=== PATIENT | male | born 1970 | race Caucasian/White ===

== ENCOUNTER 2023-02-13 18:05 | Emergency (ER) | payer SELFPAY ==
[~2023-02-13] VITALS: Ht 165.1 cm; Wt 72.6 kg
[2023-02-13 18:28] VITALS: BP 176/95; PULSE 72; RESP 18; TEMP 98.2; O2SAT 98
[2023-02-13 19:07] LABS: BASOPHILS % (AUTO) 0.6 % (0.0-2.0); EOSINOPHILS # (AUTO) 0.1 K/uL (0-0.4); EOSINOPHILS % (AUTO) 0.9 % (0.0-4.0); HEMATOCRIT 42.8 % (36-52); LYMPHOCYTES # (AUTO) 0.9 K/uL (2.0-11.5); MEAN CORPUSCULAR HEMOGLOBIN 33 pg (27-31); MEAN CORPUSCULAR HGB CONC 35 g/dL (33-37); MEAN CORPUSCULAR VOLUME 93.8 fL (80-94); MONOCYTES # (AUTO) 0.9 K/uL (0.8-1.0); MONOCYTES % (AUTO) 12.5 % (1.7-9.3); NEUTROPHILS # (AUTO) 5.5 K/uL (1.8-7.7); PLATELET COUNT (AUTO) 124 K/uL (140-450); RED BLOOD CELL COUNT(AUTO) 4.56 MIL/uL (4.20-6.10); RED CELL DISTRIBUTION WIDTH 13.6 % (11.6-13.7); WHITE BLOOD COUNT (AUTO) 7.4 K/uL (4.8-10.8)
[2023-02-13 19:48] LABS: ALBUMIN 3.9 g/dL (3.4-5.0); ANION GAP 12.5 (8-16); CARBON DIOXIDE 28.7 mmol/L (21-32); CREATININE 0.9 mg/dL (0.6-1.3); POTASSIUM 3.2 mmol/L (3.5-5.1); TOTAL BILIRUBIN 1.4 mg/dL (0.0-1.0)
--- NOTE | 2023-02-13 21:35 | NUR ---
PT TAKEN TO BED 9
--- NOTE | 2023-02-13 21:55 | NUR ---
Dr. Sung examining patient.
[2023-02-13] MEDS ORDERED: NACL 0.9% 1,000 ML IV ONE (22:00)
[2023-02-13] MEDS ORDERED: KETOROLAC 30 MG/ML VIAL IVP ONE (22:00)
--- NOTE | 2023-02-13 22:03 | NUR ---
52 YO M BIB SELF WITH C/C OF N/V/D XYESTERDAY. REPORTS 05/14 ABD PAIN THAT SUBSIDED TODAY. DENIES BLOOD IN EMESIS AND STOOL. DENIES TAKING MEDICATION FOR PAIN. REPORTS CHILLS, DIZZINESS, AND SUBJECTIVE FEVER. DENIES, HX, RX AND ALLERGIES
[2023-02-13] MEDS ORDERED: IBUP-2213 PO (22:07)
[2023-02-13] MEDS ORDERED: ONDA8TAB87 PO (22:07)
--- NOTE | 2023-02-13 23:00 | NUR ---
pt ambulated to the bathroom with a steady gait.
--- NOTE | 2023-02-13 23:06 | NUR ---
IV removed, catheter intact and site benign. Applied folded 4x4 gauze and tape to stop bleeding.
[2023-02-13 23:08] VITALS: BP 178/89; PULSE 54; RESP 18; TEMP 97.9; O2SAT 100
--- NOTE | 2023-02-13 23:08 | NUR ---
Patient discharged with pain decreasing and per Dr. Sung, patient is okay to send home with elevated Blood pressure.. Written and verbal after care instructions given and explained. Patient alert, oriented and verbalized understanding of instructions. Ambulatory with steady gait. All questions addressed prior to discharge. ID band removed. Patient advised to follow up with PMD. Rx of Zofran and ibuprofen given. Patient educated on indication of medication including possible reaction and side effects. Opportunity to ask questions provided and answered.
== END 2023-02-13 23:08 | disposition home or self-care (01) ==
LOC: MED 18:05
DX: R10.84 Generalized abdominal pain (principal); R11.2 Nausea with vomiting, unspecified; F17.200 Nicotine dependence, unspecified, uncomplicated; Z72.89 Other problems related to lifestyle; Z79.899 Other long term (current) drug therapy
CPT/HCPCS: 36415; 80053; 83690; 85025; 96374; 99283; J1885; J7030

== ENCOUNTER 2024-04-26 11:02 | Emergency (ER) | payer SELFPAY ==
[~2024-04-26] VITALS: Ht 170.2 cm; Wt 63.5 kg
[~2024-04-26 11:02] MED LIST: IBUP-2213 PO; ONDA8TAB87 PO
[2024-04-26 11:09] VITALS: BP 180/91; PULSE 78; RESP 19; TEMP 99.8; O2SAT 100
[2024-04-26] MEDS: POLYETHYLENE GLYCOL 17 GM/PKT PO ONE (11:33)
[2024-04-26] MEDS: MINERAL OIL 135 ML ENEM RC ONE (11:36)
[2024-04-26] MEDS: NACL 0.9% 1,000 ML IV ONE ×2 (13:33→15:40)
[2024-04-26] MEDS ORDERED: hydrALAZINE 20 MG/ML VIAL IM ONE (13:50)
[2024-04-26] MEDS: hydrALAZINE 20 MG/ML VIAL IVP ONE (14:09)
[2024-04-26] MEDS: GLYCERIN ADULT 1 SUPP RC ONE (14:15)
[2024-04-26] MEDS ORDERED: KETOROLAC 30 MG/ML VIAL IM ONE (15:15)
[2024-04-26] MEDS ORDERED: BISA-213 RC (15:19)
[2024-04-26] MEDS ORDERED: MIRABULK PO (15:19)
[2024-04-26] MEDS ORDERED: IBUP-2213 PO (15:19)
[2024-04-26] MEDS: KETOROLAC 30 MG/ML VIAL IVP ONE (16:32)
[2024-04-26 17:14] VITALS: BP 152/72; PULSE 80; RESP 16; TEMP 98; O2SAT 99
== END 2024-04-26 17:17 | disposition home or self-care (01) ==
LOC: MED 11:02
DX: K59.00 Constipation, unspecified (principal); R03.0 Elevated blood-pressure reading, without diagnosis of hypertension; Z79.899 Other long term (current) drug therapy
CPT/HCPCS: 74018; 96361; 96374; 96375; 99284; J0360; J1885; J7030